=== PATIENT | female | born 1980 | race Caucasian/White ===

== ENCOUNTER 2017-01-01 22:44 | Emergency (ER) | payer MEDICAID ==
[~2017-01-01] VITALS: Ht 154.9 cm; Wt 136.1 kg
[2017-01-01 23:09] VITALS: BP_SYST 162
[2017-01-02 00:10] VITALS: BP_SYST 142
== END 2017-01-02 00:10 | disposition home or self-care (01) ==
LOC: SED 22:44
DX: S93.491A Sprain of other ligament of right ankle, initial encounter (principal); Z91.040 Latex allergy status; W01.0XXA Fall on same level from slipping, tripping and stumbling without subsequent striking against object, initial encounter; Y93.01 Activity, walking, marching and hiking; Y92.091 Bathroom in other non-institutional residence as the place of occurrence of the external cause; Y99.8 Other external cause status
CPT/HCPCS: 99284

== ENCOUNTER 2017-01-03 14:48 | Emergency (ER) | payer MEDICAID ==
[~2017-01-03] VITALS: Ht 154.9 cm; Wt 136.1 kg
[2017-01-03 15:53] VITALS: BP_SYST 135
[2017-01-03 17:28] VITALS: BP_SYST 130
== END 2017-01-03 17:28 | disposition home or self-care (01) ==
LOC: SED 14:48
DX: S82.51XA Displaced fracture of medial malleolus of right tibia, initial encounter for closed fracture (principal); I10 Essential (primary) hypertension; Z91.040 Latex allergy status; W01.0XXA Fall on same level from slipping, tripping and stumbling without subsequent striking against object, initial encounter; Y93.89 Activity, other specified; Y92.511 Restaurant or cafe as the place of occurrence of the external cause; Y99.8 Other external cause status
CPT/HCPCS: 99283

== ENCOUNTER 2017-01-08 15:12 | Emergency (ER) | payer MEDICAID ==
[~2017-01-08] VITALS: Ht 154.9 cm; Wt 136.1 kg
[2017-01-08 15:28] VITALS: BP 154/102; PULSE 87; RESP 16; TEMP 97.4; O2SAT 96
--- NOTE | 2017-01-08 15:40 | NUR ---
Patient to [facility] for evaluation. Side rails up. Report given to Andreea HUFF.
--- NOTE | 2017-01-08 15:42 | NUR ---
Patient returning to ER with right ankle injury about a week ago. C/O pain 6/10 worse when she walks on. AAOx4, unlabored breathing, no deformity or bruising, no signs of acute distress.
--- NOTE | 2017-01-08 15:56 | NUR ---
ER MALLIKA Murry at bedside for evaluation
[2017-01-08 16:10] VITALS: BP 126/77; PULSE 81; RESP 16; TEMP 97.8; O2SAT 97
--- NOTE | 2017-01-08 16:10 | NUR ---
Patient given written and verbal discharge instructions and verbalizes understanding. ER ART MODEL Lovely discussed with patient the results and treatment provided. Patient in stable condition. ID arm band removed. Rx of motrin given. Patient educated on pain management and to follow up with PMD. Pain Scale 0/10. Opportunity for questions provided and answered.
== END 2017-01-08 16:10 | disposition home or self-care (01) ==
LOC: SED 15:12
DX: S82.301A Unspecified fracture of lower end of right tibia, initial encounter for closed fracture (principal); I10 Essential (primary) hypertension; Z91.040 Latex allergy status; W19.XXXA Unspecified fall, initial encounter; Y93.89 Activity, other specified; Y99.8 Other external cause status; Y92.89 Other specified places as the place of occurrence of the external cause
CPT/HCPCS: 99284

== ENCOUNTER 2018-11-24 16:35 | Emergency (ER) | payer MEDICAID ==
[~2018-11-24] VITALS: Ht 154.9 cm; Wt 124.7 kg
[2018-11-24 16:43] VITALS: BP_SYST 152
--- NOTE | 2018-11-24 18:10 | NUR ---
Patient to ER bed 02 for evaluation. Side rails up.
--- NOTE | 2018-11-24 18:23 | NUR ---
Patient is awake, alert, and oriented x4. Patient states she is covered in hives and rash since last night, reports that she had shrimp last night and today but has never had a reaction to it. Patient reports a history of hypothyroidism, hypertension, she denies other medical. Patient denies smoking and drinking.
--- NOTE | 2018-11-24 18:50 | NUR ---
AFSANEH Blackwell at bedside examining patient.
[2018-11-24] MEDS ORDERED: DIPHENHYDRAMINE HCL 50 MG CAPSULE PO ONE (19:00)
[2018-11-24] MEDS ORDERED: FAMOTIDINE 20 MG TABLET PO ONE (19:00)
[2018-11-24] MEDS ORDERED: methylPREDNISolone SOD SUCC/PF 62.5 MG/ML VIAL IM ONE (19:00)
--- NOTE | 2018-11-24 19:12 | NUR ---
Report given to DARIA Prince for continuation of care.
--- NOTE | 2018-11-24 19:24 | NUR ---
Medications were given, pt tolerated well. No adverse reaction, will continue to monitor.
[2018-11-24 19:59] VITALS: BP_SYST 143
--- NOTE | 2018-11-24 19:59 | NUR ---
Patient given written and verbal discharge instructions and verbalizes understanding. ER MD discussed with patient the results and treatment provided. Patient in stable condition. ID arm band removed. Rx of Epipen 2-pack, Prednisone, Loratidine, and Benadryl given. Patient educated on pain management and to follow up with PMD. Pain Scale 0. Opportunity for questions provided and answered. Medication side effect fact sheet provided.
== END 2018-11-24 19:59 | disposition home or self-care (01) ==
LOC: SED 16:35
DX: L50.0 Allergic urticaria (principal); I10 Essential (primary) hypertension; Z91.040 Latex allergy status
CPT/HCPCS: 96372; 99283; J2930; Q0163

== ENCOUNTER 2019-10-13 14:49 | Emergency (ER) | payer MEDICAID ==
[~2019-10-13] VITALS: Ht 154.9 cm; Wt 133.8 kg
[2019-10-13 14:50] VITALS: BP_SYST 147
--- NOTE | 2019-10-13 14:50 | NUR ---
BROUGHT BACK TO BED #8 VIA WHEELCHAIR, TRIAGED AND REPORT GIVEN TO RAYSHAWN
--- NOTE | 2019-10-13 15:20 | NUR ---
Patient arrived via POV, AAOx4, and ambulatory with steady gait. Patient accompanied by family. Patient c/c of epigastric pain feels like "trapped air" x1 year intermittently. Estimates 1-2 times/mth. Patient states since eating this morning between [id number] she has had this episode x5 times. Notes pressure/sharp pain, non-radiating. Distended, bloated abdomen. Patient states she did not eat spicy or fried food. Patient states she eats 2-3 larger meals, and drinks water and intakes more air. Patient states she is trying to modify her diet and intake of high fiber foods like broccoli and cauliflower. Patietn states no sour taste to mouth. It is not uncommon to have 2-5 soft stools/day. Will continue to follow up and monitor.
--- NOTE | 2019-10-13 16:40 | NUR ---
ER at bedside examining patient.
[2019-10-13] MEDS: FAMOTIDINE 20 MG TABLET PO ONE (17:21)
[2019-10-13] MEDS: MAG-AL HYDROX/SIMETH 30 ML UDC PO ONE (17:21)
[2019-10-13] MEDS: LIDOCAINE VISCOUS 2%, 15 ML UDC MM ONE (17:22)
[2019-10-13] MEDS: BELLADONNA ALKALOIDS/PHENOBARB 5 ML UDC PO ONE (17:22)
--- NOTE | 2019-10-13 17:38 | NUR ---
EKG and GI cocktail given. Patient tolerated well. Will continue to follow up and monitor.
[2019-10-13 18:09] VITALS: BP_SYST 139
--- NOTE | 2019-10-13 18:09 | NUR ---
Patient given written and verbal discharge instructions and verbalizes understanding. ER MD discussed with patient the results and treatment provided. Patient in stable condition. ID arm band removed. Rx of pepcid given. Patient educated on pain management and to follow up with PMD. Pain Scale 0/10. Opportunity for questions provided and answered. Medication side effect fact sheet provided.
== END 2019-10-13 18:09 | disposition home or self-care (01) ==
LOC: SED 14:49
DX: R10.13 Epigastric pain (principal)
CPT/HCPCS: 93005; 99284; J2001